=== PATIENT | male | born 1995 | race Caucasian/White ===

== ENCOUNTER 2019-05-03 17:13 | Emergency (ER) | payer OTHER ==
[~2019-05-03] VITALS: Ht 165.1 cm; Wt 85.3 kg
[~2019-05-03 17:13] MED LIST: ATOM40; AZIT250 PO; CLON.1; CLON2; CODACE30 PO; HYDACE5 PO; TRAZ100
[2019-05-03] MEDS ORDERED: INCARCERATION (17:30)
== END 2019-05-03 17:50 | disposition home or self-care (01) ==
LOC: ER 17:13
DX: S52.202A Unspecified fracture of shaft of left ulna, initial encounter for closed fracture (principal); X58.XXXA Exposure to other specified factors, initial encounter
CPT/HCPCS: 29125; 73090; 99283-25